=== PATIENT | female | born 1965 | race Caucasian/White ===

== ENCOUNTER 2016-10-24 07:59 | Day surgery (SDC) | payer OTHER ==
[2016-10-21 10:04] VITALS: BMI 27.3
[~2016-10-24 07:59] MED LIST: LEVOFLOXACIN 500 MG PREMIX BAG IVPB ONE
[2016-10-24] MEDS ORDERED: LEVOFLOXACIN 500 MG IVPB 100 ML IVPB ONE (09:38)
[2016-10-24] MEDS ORDERED: MIDAZOLAM HCL 2 MG/2 ML SINGLE DOSE VIAL ONE ×2 (10:02→10:03)
[2016-10-24] MEDS ORDERED: LIDOCAINE HCL 2% 100 MG/5 ML DISP.SYRIN ONE (10:07)
[2016-10-24] MEDS ORDERED: LEVOFLOXACIN 500 MG PREMIX BAG IVPB ONE (10:10)
[2016-10-24] MEDS ORDERED: ONDANSETRON 4 MG/2 ML VIAL IVPUSH PRN (10:45)
[2016-10-24] MEDS ORDERED: oxyCODONE HCL 5 MG TABLET PO PRN (10:45)
--- NOTE | 2016-10-24 10:58 | OP ---
Operative Note - Note: Operative Date: 10/24/16 Pre-Operative Diagnosis: left renal stone Operation: left eswl Findings: 5mm left lower pole stone Post-Operative Diagnosis: Same as Pre-op Surgeon: Rj John Anesthesia: General Operative Report Dictated: Yes
[2016-10-24] MEDS ORDERED: ONDANSETRON 4 MG/2 ML VIAL ONE (11:59)
[2016-10-24] MEDS ORDERED: ONDANSETRON 4 MG/2 ML VIAL IVPB ONE (12:08)
[2016-10-24 12:13] VITALS: TEMP 97.6
[2016-10-24 14:42] VITALS: BP 111/58; PULSE 75
--- NOTE | 2016-10-24 18:17 | OP ---
DATE OF OPERATION: 10/24/2016 PREOPERATIVE DIAGNOSIS: Left renal stone. POSTOPERATIVE DIAGNOSIS: Left renal stone. PROCEDURE: Left extracorporeal shock wave lithotripsy. ATTENDING: Kamila John M.D. ANESTHESIA: General. OPERATION: Patient was brought in the operating room, placed in a supine position on the operating room table. Ultrasonography and fluoroscopy were performed. A 5-mm left lower pole stone was identified. Extracorporeal shock wave lithotripsy was started once general anesthesia had been administered; Levaquin had also been given preoperatively for surgical prophylaxis. 2500 impulses at 17 joules of power was administered to the stone. No complication was noted. Excellent fragmentation of the stone was noted on real time fluoroscopy and ultrasonography. DISPOSITION: Disposition of the patient to the recovery room. KAMILA WEST M.D. [id number]
== END 2016-10-24 15:38 | disposition home or self-care (01) ==
LOC: JASU-SURG 07:59
PROVIDERS: ATTEND Urology
PROC: 0TF4XZZ Fragmentation in Left Kidney Pelvis, External Approach (ICD-10-PCS; principal; 2016-10-24 11:15)
DX: N20.0 Calculus of kidney (principal)
CPT/HCPCS: 94760